=== PATIENT | male | born 1975 | race Caucasian/White ===

== ENCOUNTER 2021-03-12 08:02 | Emergency (ER) | payer OTHER ==
[~2021-03-12 08:02] MED LIST: ALLEGRA ALLERG180 MG PO; AMBIEN10 MG PO; MEDROL 4MG DOSEP4 MG PO; MUCINEX 600MG600 MG PO; SINGULAIR10 MG PO; SYMBICORT 80-10.2 GM INH; VENTOLIN HFA IN18 GM INH; ZPAK PO
[2021-03-12 09:12] LABS: BASOPHIL 0.4 % (0-2); EOSINOPHIL 2.1 % (0-5); HCT 44.5 % (42.0-52.0); HGB 15.5 g/dl (13.2-18.0); LYMPHOCYTE 14.4 % (15-48); MCH 31.8 pg (25.0-31.0); MCHC 34.8 g/dL (32.0-36.0); MCV 91.2 fL (78.0-100.0); MONOCYTE 7.6 % (0-12); MPV 9.7 fL (6.0-9.5); NEUTROPHIL 75.3 % (41-80); NRBC 0; PLT 311 K/uL (150-400); RBC 4.88 M/uL (4.70-6.00); RDW 11.9 % (11.5-14.0)
[2021-03-12 09:42] LABS: BILIRUBIN - TOTAL 0.7 mg/dL (0.2-1.0); BUN/CREAT RATIO (CALC) 19.5 RATIO; C-REACTIVE PROTEIN 0.4 mg/dL (<=0.90); CREATININE 0.87 mg/dL (0.67-1.17); GLOBULIN (CALCULATION) 3.4 g/dL; POTASSIUM 4.2 mmol/L (3.5-5.1); TOTAL PROTEIN 7.4 g/dL (6.4-8.2)
[2021-03-12] MEDS ORDERED: NAPROXEN500 MG PO (10:44)
[2021-03-12] MEDS ORDERED: CEPHALEXIN500 M1 PO (10:44)
== END 2021-03-12 12:02 | disposition home or self-care (01) ==
LOC: FER 08:02
PROVIDERS: Emergency Medicine
DX: L03.115 Cellulitis of right lower limb (principal); J45.909 Unspecified asthma, uncomplicated; Z79.899 Other long term (current) drug therapy
CPT/HCPCS: 36415; 80053; 85025; 85379; 86140; 93971; J3370; J7050